=== PATIENT | male | born 1990 | race Caucasian/White ===

== ENCOUNTER 2022-07-05 00:13 | Emergency (ER) | payer BC ==
[2022-07-05] MEDS ORDERED: VERSED 5 MG/5 ML ONE (00:17)
[2022-07-05] MEDS ORDERED: Sodium Chloride 0.9% 1000 ML 1,000 ML IV STA ×2 (00:18→01:29)
[2022-07-05] MEDS ORDERED: ZOFRAN ODT 4 MG PO ONE (00:18)
--- NOTE | 2022-07-05 00:18 | ERPHSYRPT ---
- History of Present Illness Source: patient, EMS Exam Limitations: clinical condition, intoxication Timing/Duration: today Severity of Symptoms-Max: moderate Severity of Symptoms-Current: mild (Mild to moderate) Suicidal thoughts: ingestion Associated Symptoms: agitated, anxiety, ingestion <QUINN CLEMENTS - Last Filed: 07/05/22 06:37> <MOHSEN LEY - Last Filed: 07/05/22 12:44> - History of Present Illness Time Seen by Provider: 07/05/22 00:18 Physician History: This is a 31-year-old white male patient was brought into the emergency department by paramedics secondary to tensional ingestion of approximately 15 tablets of his Effexor medication (venlafaxine). Occurred prior to arrival. The timing that he ingested was approximately 4-4 30 this afternoon. He took it before his work this afternoon. A coworker had called because the patient was not acting normally at work. When asked, the patient states he did not consume these tablets secondary to her suicidal attempt. He was vague as to why he took so many of his medication. Patient has no complaints upon arrival to the emergency department. He was brought in by the paramedics (QUINN CLEMENTS) Allergies/Adverse Reactions: No Known Drug Allergies Allergy (Verified 07/05/22 00:18) - Nursing Vital Signs Nursing Vital Signs: Initial Vital Signs Temperature 98.1 F 07/05/22 00:31 Pulse Rate 155 H 07/05/22 00:31 Respiratory Rate 24 07/05/22 00:31 Blood Pressure 138/54 07/05/22 00:31 O2 Sat by Pulse Oximetry 97 07/05/22 00:31 Pain Scale Pain Intensity 0 - Course Nursing assessment & vital signs reviewed: Yes EKG Interpreted by Me: RATE ([id number]), Sinus Tach, prolonged QT interval, NORMAL QRS, NORMAL ST-T, Other (No acute ischemic changes on today's twelve-lead EKG.) <QUINN CLEMENTS - Last Filed: 07/05/22 06:37> Ordered Tests: Active Orders 24 hr Category Date Time Status Clean Catch Urine Specimen STAT Care 07/05/22 00:18 Active EKG-ER Only STAT Care 07/05/22 00:19 Active Suggs [Catheter-[place]] STAT Care 07/05/22 00:25 Active IV Insertion STAT Care 07/05/22 00:18 Active Telemetry q4h Care 07/05/22 02:12 Active ACETAMINOPHEN Stat Lab 07/05/22 00:53 Completed BMP Stat Lab 07/05/22 04:01 Completed BMP Stat Lab 07/05/22 08:40 Completed CBC W DIFF Stat Lab 07/05/22 00:53 Completed CK (IN-HOUSE) [CK-Creatinine Phosphokinase] Stat Lab 07/05/22 00:43 Completed CMP Stat Lab 07/05/22 00:53 Completed ETHYL ALCOHOL Stat Lab 07/05/22 00:53 Completed MAG [MAGNESIUM] Stat Lab 07/05/22 00:43 Completed POCT GLUCOSE Stat Lab 07/05/22 00:22 Completed POCT GLUCOSE Stat Lab 07/05/22 01:33 Completed POCT GLUCOSE Stat Lab 07/05/22 10:42 Received POCT GLUCOSE Stat Lab 07/05/22 10:42 Received POCT GLUCOSE Stat Lab 07/05/22 10:43 Completed SALICYLATE Stat Lab 07/05/22 00:53 Completed UA W/RFX UR CULTURE Stat Lab 07/05/22 00:53 Completed Urine Triage Profile Stat Lab 07/05/22 00:43 Completed Medication Summary Discontinued Medications Generic Name Dose Route Start Last Admin Trade Name Freq PRN Reason Stop Dose Admin Sodium Chloride 1,000 mls @ 999 mls/hr 07/05/22 00:18 07/05/22 01:41 Sodium Chloride 0.9% 1000 Ml IV 07/05/22 01:18 Infused .Q1H1M STA Infusion Sodium Chloride Confirm 07/05/22 00:37 Sodium Chloride 0.9% 1000 Ml Administered 07/05/22 00:38 Dose 1,000 mls @ ud .ROUTE .STK-MED ONE Sodium Chloride Confirm 07/05/22 01:00 Sodium Chloride 0.9% 250 Ml Administered 07/05/22 01:01 Dose 250 mls @ ud IV .STK-MED ONE Midazolam HCl 50 mg/ Sodium 250 mls @ 11.825 mls/hr 07/05/22 01:12 07/05/22 01:22 Chloride IV 08/04/22 01:11 0.004 mg/kg/hr .Q21H9M PRN 1.892 mls/hr SEDATION Administration Protocol 0.025 MG/KG/HR Sodium Chloride 1,000 mls @ 500 mls/hr 07/05/22 01:29 07/05/22 01:38 Sodium Chloride 0.9% 1000 Ml IV 07/05/22 03:28 Not Given .Q2H STA Dextrose/Sodium Chloride 1,000 mls @ 250 mls/hr 07/05/22 02:00 07/05/22 10:41 Dextrose 5%-Ns Iv Solution 1000 Ml IV 08/04/22 01:59 Not Given .Q4H KELSY Magnesium Sulfate/Dextrose 100 mls @ 100 mls/hr 07/05/22 02:15 07/05/22 02:53 Magnesium 1 Gm / 100 Ml D5w IV 07/05/22 04:14 100 mls/hr Q1H KELSY Administration Potassium Chloride 20 meq in 100 mls @ 50 mls/hr 07/05/22 02:12 07/05/22 02:20 Potassium Chloride 20 Meq In Water 100ml IV 07/05/22 04:11 50 mls/hr STAT ONE Administration Potassium Chloride Confirm 07/05/22 02:14 Potassium Chloride 20 Meq In Water 100ml Administered 07/05/22 02:15 Dose 100 mls @ ud IV .STK-MED ONE Sodium Chloride 500 mls @ 250 mls/hr 07/05/22 06:19 07/05/22 08:36 Sodium Chloride 0.9% 500 Ml IV 07/05/22 08:18 Infused .Q2H ONE Infusion Sodium Chloride Confirm 07/05/22 06:22 Sodium Chloride 0.9% 500 Ml Administered 07/05/22 06:23 Dose 500 mls @ ud IV .STK-MED ONE Midazolam HCl Confirm 07/05/22 00:17 Midazolam Hcl 5 Mg/5 Ml Vial Administered 07/05/22 00:18 Dose 5 mg .ROUTE .STK-MED ONE Ondansetron HCl 4 mg 07/05/22 00:18 07/05/22 00:40 Zofran 4 Mg/Udtablet Orally Disintegrating PO 07/05/22 00:19 Not Given STAT ONE Ondansetron HCl 4 mg 07/05/22 00:40 07/05/22 00:40 Ondansetron Hcl 4 Mg/2 Ml Vial IV 07/05/22 00:41 4 mg STAT ONE Administration Ondansetron HCl Confirm 07/05/22 00:37 Ondansetron Hcl 4 Mg/2 Ml Vial Administered 07/05/22 00:38 Dose 4 mg .ROUTE .STK-MED ONE Pantoprazole Sodium 40 mg 07/05/22 00:19 07/05/22 00:39 Pantoprazole 40 Mg Vial IV 07/05/22 00:20 40 mg STAT ONE Administration Pantoprazole Sodium Confirm 07/05/22 00:37 Pantoprazole 40 Mg Vial Administered 07/05/22 00:38 Dose 40 mg IV .STK-MED ONE Lab/Rad Data: Laboratory Result Diagrams 07/05/22 00:53 07/05/22 08:40 Laboratory Results 07/05/22 07/05/22 07/05/22 Range/Units 10:43 08:40 04:01 WBC (4.0-10.5) x10^3/uL RBC (4.1-5.6) x10^6/uL Hgb (12.5-18.0) g/dL Hct (42-50) % MCV (78-100) fL MCH (26-32) pg MCHC (32-36) g/dL RDW (11.5-14.0) % Plt Count (150-450) x10^3/uL MPV (7.5-11.0) fL Gran % (36.0-66.0) % Immature Gran % (Auto) (0.00-0.4) % Nucleat RBC Rel Count (0.00-0.1) % Eos # (Auto) (0-0.5) x10^3/uL Immature Gran # (Auto) (0.00-0.03) x10^3u/L Absolute Lymphs (auto) (1.0-4.6) x10^3/uL Absolute Monos (auto) (0.0-1.3) x10^3/uL Absolute Nucleated RBC (0.00-0.01) x10^3u/L Lymphocytes % (24.0-44.0) % Monocytes % (0.0-12.0) % Eosinophils % (0.00-5.0) % Basophils % (0.0-0.4) % Absolute Granulocytes (1.4-6.9) x10^3/uL Basophils # (0-0.4) x10^3/uL Sodium 141 139 (137-145) mmol/L Potassium 3.6 3.7 (3.5-5.1) mmol/L Chloride 107 105 (98-107) mmol/L Carbon Dioxide 25 27 (22-30) mmol/L Anion Gap 12.4 10.7 (5-15) MEQ/L BUN 9 13 (9-20) mg/dL Creatinine 0.68 0.77 (0.66-1.25) mg/dL Estimated GFR > 60.0 > 60.0 ML/MIN Glucose 76 136 H (74-106) mg/dL POC Glucometer 91 (74 to 106) mg/dL Calcium 7.2 L 7.3 L D (8.4-10.2) mg/dL Magnesium (1.6-2.3) mg/dL Total Bilirubin (0.2-1.3) mg/dL AST (17-59) U/L ALT (0-50) U/L Alkaline Phosphatase (38-126) U/L Creatine Kinase (55-170) U/L Serum Total Protein (6.3-8.2) g/dL Albumin (3.5-5.0) g/dL Urine Color (Yellow) Urine Appearance (Clear) Urine pH (4.6-8.0) Ur Specific [place] (1.005-1.030) Urine Protein (Negative) Urine Glucose (UA) (Negative) mg/dL Urine Ketones (Negative) Urine Blood (Negative) Urine Nitrite (Negative) Urine Bilirubin (Negative) Urine Urobilinogen (0.2) mg/dL Ur Leukocyte Esterase (Negative) U Hyaline Cast (Auto) (0-2) /LPF Urine Microscopic RBC (0-5) /HPF Urine Microscopic WBC (0-5) /HPF Ur Epithelial Cells (None Seen) /HPF Urine Bacteria (None Seen) /HPF Urine Culture Reflexed (NO) Salicylates (2-20) mg/dL Urine Opiates Level (NEGATIVE) Ur Methadone (NEGATIVE) Acetaminophen (10-30) ug/ml Urine Barbiturates (NEGATIVE) Ur Phencyclidine (PCP) (NEGATIVE) Urine Amphetamine (NEGATIVE) U Benzodiazepine Level (NEGATIVE) Urine Cocaine (NEGATIVE) Urine Marijuana (THC) (NEGATIVE) Ethyl Alcohol (0-10) mg/dL 04/28/23 04/28/23 04/28/23 Range/Units 01:33 00:53 00:53 WBC (4.0-10.5) x10^3/uL RBC (4.1-5.6) x10^6/uL Hgb (12.5-18.0) g/dL Hct (42-50) % MCV (78-100) fL MCH (26-32) pg MCHC (32-36) g/dL RDW (11.5-14.0) % Plt Count (150-450) x10^3/uL MPV (7.5-11.0) fL Gran % (36.0-66.0) % Immature Gran % (Auto) (0.00-0.4) % Nucleat RBC Rel Count (0.00-0.1) % Eos # (Auto) (0-0.5) x10^3/uL Immature Gran # (Auto) (0.00-0.03) x10^3u/L Absolute Lymphs (auto) (1.0-4.6) x10^3/uL Absolute Monos (auto) (0.0-1.3) x10^3/uL Absolute Nucleated RBC (0.00-0.01) x10^3u/L Lymphocytes % (24.0-44.0) % Monocytes % (0.0-12.0) % Eosinophils % (0.00-5.0) % Basophils % (0.0-0.4) % Absolute Granulocytes (1.4-6.9) x10^3/uL Basophils # (0-0.4) x10^3/uL Sodium 141 (137-145) mmol/L Potassium 3.9 (3.5-5.1) mmol/L Chloride 104 (98-107) mmol/L Carbon Dioxide 19 L (22-30) mmol/L Anion Gap 23.1 H (5-15) MEQ/L BUN 16 (9-20) mg/dL Creatinine 1.00 (0.66-1.25) mg/dL Estimated GFR > 60.0 ML/MIN Glucose 96 (74-106) mg/dL POC Glucometer 90 (74 to 106) mg/dL Calcium 8.6 (8.4-10.2) mg/dL Magnesium (1.6-2.3) mg/dL Total Bilirubin 0.40 (0.2-1.3) mg/dL AST 43 (17-59) U/L ALT 52 H (0-50) U/L Alkaline Phosphatase 72 (38-126) U/L Creatine Kinase (55-170) U/L Serum Total Protein 7.5 (6.3-8.2) g/dL Albumin 4.7 (3.5-5.0) g/dL Urine Color Yellow (Yellow) Urine Appearance Clear (Clear) Urine pH 6.0 (4.6-8.0) Ur Specific [place] 1.020 (1.005-1.030) Urine Protein 30 (Negative) Urine Glucose (UA) Negative (Negative) mg/dL Urine Ketones Negative (Negative) Urine Blood Moderate A (Negative) Urine Nitrite Negative (Negative) Urine Bilirubin Negative (Negative) Urine Urobilinogen 1.0 A (0.2) mg/dL Ur Leukocyte Esterase Negative (Negative) U Hyaline Cast (Auto) 3-5 A (0-2) /LPF Urine Microscopic RBC 0-2 (0-5) /HPF Urine Microscopic WBC 3-5 (0-5) /HPF Ur Epithelial Cells None Seen (None Seen) /HPF Urine Bacteria None Seen (None Seen) /HPF Urine Culture Reflexed NO (NO) Salicylates < 1.0 L (2-20) mg/dL Urine Opiates Level (NEGATIVE) Ur Methadone (NEGATIVE) Acetaminophen < 10 L (10-30) ug/ml Urine Barbiturates (NEGATIVE) Ur Phencyclidine (PCP) (NEGATIVE) Urine Amphetamine (NEGATIVE) U Benzodiazepine Level (NEGATIVE) Urine Cocaine (NEGATIVE) Urine Marijuana (THC) (NEGATIVE) Ethyl Alcohol < 10 (0-10) mg/dL 07/05/22 07/05/22 07/05/22 Range/Units 00:53 00:43 00:43 WBC 15.3 H (4.0-10.5) x10^3/uL RBC 4.80 (4.1-5.6) x10^6/uL Hgb 15.2 (12.5-18.0) g/dL Hct 45.6 (42-50) % MCV 95.0 (78-100) fL MCH 31.7 (26-32) pg MCHC 33.3 (32-36) g/dL RDW 11.7 (11.5-14.0) % Plt Count 353 (150-450) x10^3/uL MPV 9.6 (7.5-11.0) fL Gran % 87.0 H (36.0-66.0) % Immature Gran % (Auto) 2.2 H (0.00-0.4) % Nucleat RBC Rel Count 0.0 (0.00-0.1) % Eos # (Auto) 0.05 (0-0.5) x10^3/uL Immature Gran # (Auto) 0.34 H (0.00-0.03) x10^3u/L Absolute Lymphs (auto) 0.90 L (1.0-4.6) x10^3/uL Absolute Monos (auto) 0.65 (0.0-1.3) x10^3/uL Absolute Nucleated RBC 0.00 (0.00-0.01) x10^3u/L Lymphocytes % 5.9 L (24.0-44.0) % Monocytes % 4.3 (0.0-12.0) % Eosinophils % 0.3 (0.00-5.0) % Basophils % 0.3 (0.0-0.4) % Absolute Granulocytes 13.27 H (1.4-6.9) x10^3/uL Basophils # 0.05 (0-0.4) x10^3/uL Sodium (137-145) mmol/L Potassium (3.5-5.1) mmol/L Chloride (98-107) mmol/L Carbon Dioxide (22-30) mmol/L Anion Gap (5-15) MEQ/L BUN (9-20) mg/dL Creatinine (0.66-1.25) mg/dL Estimated GFR ML/MIN Glucose (74-106) mg/dL POC Glucometer (74 to 106) mg/dL Calcium (8.4-10.2) mg/dL Magnesium 2.5 H (1.6-2.3) mg/dL Total Bilirubin (0.2-1.3) mg/dL AST (17-59) U/L ALT (0-50) U/L Alkaline Phosphatase (38-126) U/L Creatine Kinase 345 H (55-170) U/L Serum Total Protein (6.3-8.2) g/dL Albumin (3.5-5.0) g/dL Urine Color (Yellow) Urine Appearance (Clear) Urine pH (4.6-8.0) Ur Specific [place] (1.005-1.030) Urine Protein (Negative) Urine Glucose (UA) (Negative) mg/dL Urine Ketones (Negative) Urine Blood (Negative) Urine Nitrite (Negative) Urine Bilirubin (Negative) Urine Urobilinogen (0.2) mg/dL Ur Leukocyte Esterase (Negative) U Hyaline Cast (Auto) (0-2) /LPF Urine Microscopic RBC (0-5) /HPF Urine Microscopic WBC (0-5) /HPF Ur Epithelial Cells (None Seen) /HPF Urine Bacteria (None Seen) /HPF Urine Culture Reflexed (NO) Salicylates (2-20) mg/dL Urine Opiates Level (NEGATIVE) Ur Methadone (NEGATIVE) Acetaminophen (10-30) ug/ml Urine Barbiturates (NEGATIVE) Ur Phencyclidine (PCP) (NEGATIVE) Urine Amphetamine (NEGATIVE) U Benzodiazepine Level (NEGATIVE) Urine Cocaine (NEGATIVE) Urine Marijuana (THC) (NEGATIVE) Ethyl Alcohol (0-10) mg/dL 07/05/22 07/05/22 Range/Units 00:43 00:22 WBC (4.0-10.5) x10^3/uL RBC (4.1-5.6) x10^6/uL Hgb (12.5-18.0) g/dL Hct (42-50) % MCV (78-100) fL MCH (26-32) pg MCHC (32-36) g/dL RDW (11.5-14.0) % Plt Count (150-450) x10^3/uL MPV (7.5-11.0) fL Gran % (36.0-66.0) % Immature Gran % (Auto) (0.00-0.4) % Nucleat RBC Rel Count (0.00-0.1) % Eos # (Auto) (0-0.5) x10^3/uL Immature Gran # (Auto) (0.00-0.03) x10^3u/L Absolute Lymphs (auto) (1.0-4.6) x10^3/uL Absolute Monos (auto) (0.0-1.3) x10^3/uL Absolute Nucleated RBC (0.00-0.01) x10^3u/L Lymphocytes % (24.0-44.0) % Monocytes % (0.0-12.0) % Eosinophils % (0.00-5.0) % Basophils % (0.0-0.4) % Absolute Granulocytes (1.4-6.9) x10^3/uL Basophils # (0-0.4) x10^3/uL Sodium (137-145) mmol/L Potassium (3.5-5.1) mmol/L Chloride (98-107) mmol/L Carbon Dioxide (22-30) mmol/L Anion Gap (5-15) MEQ/L BUN (9-20) mg/dL Creatinine (0.66-1.25) mg/dL Estimated GFR ML/MIN Glucose (74-106) mg/dL POC Glucometer 107 H (74 to 106) mg/dL Calcium (8.4-10.2) mg/dL Magnesium (1.6-2.3) mg/dL Total Bilirubin (0.2-1.3) mg/dL AST (17-59) U/L ALT (0-50) U/L Alkaline Phosphatase (38-126) U/L Creatine Kinase (55-170) U/L Serum Total Protein (6.3-8.2) g/dL Albumin (3.5-5.0) g/dL Urine Color (Yellow) Urine Appearance (Clear) Urine pH (4.6-8.0) Ur Specific [place] (1.005-1.030) Urine Protein (Negative) Urine Glucose (UA) (Negative) mg/dL Urine Ketones (Negative) Urine Blood (Negative) Urine Nitrite (Negative) Urine Bilirubin (Negative) Urine Urobilinogen (0.2) mg/dL Ur Leukocyte Esterase (Negative) U Hyaline Cast (Auto) (0-2) /LPF Urine Microscopic RBC (0-5) /HPF Urine Microscopic WBC (0-5) /HPF Ur Epithelial Cells (None Seen) /HPF Urine Bacteria (None Seen) /HPF Urine Culture Reflexed (NO) Salicylates (2-20) mg/dL Urine Opiates Level NEGATIVE (NEGATIVE) Ur Methadone NEGATIVE (NEGATIVE) Acetaminophen (10-30) ug/ml Urine Barbiturates NEGATIVE (NEGATIVE) Ur Phencyclidine (PCP) NEGATIVE (NEGATIVE) Urine Amphetamine NEGATIVE (NEGATIVE) U Benzodiazepine Level NEGATIVE (NEGATIVE) Urine Cocaine NEGATIVE (NEGATIVE) Urine Marijuana (THC) NEGATIVE (NEGATIVE) Ethyl Alcohol (0-10) mg/dL - Progress Progress: improved, re-examined Counseled pt/family regarding: lab results, diagnosis <QUINN CLEMENTS - Last Filed: 07/05/22 06:37> <MOHSEN LEY - Last Filed: 07/05/22 12:44> - Progress Progress Note: 07/05/22 01:14 This patient's medical issue is 1 of high complexity. The level of complexity and the work-up performed is based on the past medical history, medication list, medication drug allergy list, history of present illness and physical findings. Work-up includes placement of intravenous fluids. IV line was already placed by the paramedics. We gave the patient Zofran intravenously as well as Protonix intravenously. We also provided him with a Versed drip. We did a CBC, CMP, urinalysis, urine drug triage, twelve-lead EKG. The patient is monitored in the emergency department. We placed him on 2 L oxygen via nasal cannula. We contacted poison control ([place]) and obtained instructions and direction on caring and monitoring this patient. They faxed over instructions for monitoring and medical intervention if and as needed. Patient is giving different versions of his answer to the question whether or not this was a suicidal attempt. He states the oral ingestion was intentional but was not suicidal attempt. However, he did tell the nurse that it was a suicide attempt. Therefore we will monitor him here in the emergency department and continue intravenous fluids and the Versed drip and will periodically repeat twelve-lead EKG and monitor his temperature, heart rate, blood pressure and oxygen saturations. We will obtain a psychiatric consultation later in the morning. 07/05/22 06:20 Repeat/second twelve-lead EKG was interpreted by me as performed 07/05/2022 at 256 the morning the heart rate is 128 bpm sinus tachycardia normal axis normal QRS normal intervals without evidence of acute ischemic changes. 07/05/22 06:37 Repeat/third twelve-lead EKG was interpreted by me and performed on 07/05/2022 at approximately 625 this morning. The heart rate is 111 bpm. The rhythm is sinus tachycardia with normal axis, normal QRS, normal intervals without evidence of acute ischemic changes. Repeat BMP will be ordered for 0800 this a.m. Patient will need a psychiatric/mental health evaluation to determine his final disposition. I am transferring care of this patient to Dr. Ley at shift change. He will follow- up on the repeat BMP results, evaluate his vital signs and alertness/awareness and order the psychiatric evaluation. He will make final disposition. (QUINN CLEMENTS) 07/05/22 12:19 Patient is checked out to me at shift change from Dr. Clements with pending repeating labs and psychiatric evaluation. Patient was on low-dose of Versed which was stopped and Poison control is called again who recommended patient would be cleared if has stable vitals around 9:30 AM today. Patient continue to improve, holding normal conversation, does report having depressive thoughts, denies any definite suicidal thoughts/intention to take these medication but could not explain why did he take those meds. Behavioral health evaluation is obtained and is appropriate for transfer to inpatient psychiatric facility for further evaluation. Patient is being [facility] to [facility]. (MOHSEN LEY) Medical Desision Making - Independent Historian Additional History obtained from: Staffing Director/EMT - Discussion of managment Reviewed:: Test results - Diagnostic Testing Diagnostic test were ordered, analyzed, and reviewed by me: Yes - Risk of complications The pt has a high risk of morbidity or mortality based on: Decision regarding hospitilization or escalation of hosp level of care <QUINN CLEMENTS - Last Filed: 07/05/22 06:37> - Independent Historian Additional History obtained from: Family - Discussion of managment Care discussed with:: on-call "doc" (Dr. JASON Day) Agreed on:: Treatment plan Will see patient: in hospital <MOHSEN LEY - Last Filed: 07/05/22 12:44> - Departure Departure Disposition: Transfer Critical Care Time: Yes Critical Care Time(excluding separately billable procedures): Critical 30-74 mins (40) <QUINN CLEMENTS - Last Filed: 07/05/22 06:37> <MOHSEN LEY - Last Filed: 07/05/22 12:44> - Departure Clinical Impression: SSRI poisoning of undetermined intent, Major depression Condition: Fair Referrals: DOCTOR,NO FAMILY [Primary Care Provider] - Follow up/PCP as directed
[2022-07-05] MEDS ORDERED: PROTONIX 40 MG IV IV ONE ×2 (00:19→00:37)
[2022-07-05] MEDS ORDERED: Sodium Chloride 0.9% 1000 ML 1,000 ML ONE (00:37)
[2022-07-05] MEDS ORDERED: Zofran 4 MG/2 ML VIAL ONE (00:37)
[2022-07-05] MEDS ORDERED: Zofran 4 MG/2 ML VIAL IV ONE (00:40)
[2022-07-05 00:57] LABS: Absolute Neutrophil Ct (ANC) 13.27 x10^3/uL (1.4-6.9); BASOPHIL % 0.3 % (0.0-0.4); Basophil (Absolute #) 0.05 x10^3/uL (0-0.4); Eosinophil % 0.3 % (0.00-5.0); Eosinophil (Absolute #) 0.05 x10^3/uL (0-0.5); Hematocrit 45.6 % (42-50); Hemoglobin 15.2 g/dL (12.5-18.0); IMMATURE GRAN # 0.34 x10^3u/L (0.00-0.03); IMMATURE GRAN % 2.2 % (0.00-0.4); Lymphocytes % 5.9 % (24.0-44.0); Mean Corpuscular Hemoglobin 31.7 pg (26-32); Mean Corpuscular Hgb Concent. 33.3 g/dL (32-36); Mean Platelet Volume 9.6 fL (7.5-11.0); Monocyte (Absolute #) 0.65 x10^3/uL (0.0-1.3); Monocytes % 4.3 % (0.0-12.0); Platelet Count 353 x10^3/uL (150-450); Red Cell Distribution Width 11.7 % (11.5-14.0); White Blood Count 15.3 x10^3/uL (4.0-10.5)
[2022-07-05] MEDS ORDERED: Sodium Chloride 0.9% 250 ML 250 ML IV ONE (01:00)
[2022-07-05 01:10] LABS: Appearance Clear (Clear); Bacteria None Seen /HPF (None Seen); Bilirubin Negative (Negative); Blood Moderate (Negative); Epithelial Cells None Seen /HPF (None Seen); Glucose, Urine Negative (Negative); Ketones Negative (Negative); Leukocyte Esterase Negative (Negative); Nitrite Negative (Negative); Protein,Urine Dip 30 (Negative); RBC 0-2 /HPF (0-5)
[2022-07-05 01:11] LABS: ACETAMINOPHEN < 10 ug/ml (10-30); ADD URINE CULTURE? NO (NO); ALBUMIN 4.7 g/dL (3.5-5.0); ALKALINE PHOSPHATASE 72 U/L (38-126); ANION GAP 23.1 MEQ/L (5-15); BLOOD UREA NITROGEN 16 mg/dL (9-20); CHLORIDE 104 mmol/L (98-107); Calcium 8.6 mg/dL (8.4-10.2); Carbon Dioxide 19 mmol/L (22-30); EST GLOMERULAR FILTRATION RATE > 60.0 ML/MIN; ETHYL ALCOHOL < 10 mg/dL (0-10); Glucose 96 mg/dL (74-106); Potassium 3.9 mmol/L (3.5-5.1); SALICYLATE < 1.0 mg/dL (2-20); SGOT/AST 43 U/L (17-59); SGPT/ALT 52 U/L (0-50); SODIUM 141 mmol/L (137-145); Total Protein 7.5 g/dL (6.3-8.2)
[2022-07-05] MEDS ORDERED: Versed 50 MG/ 10 Ml MDV*** 50 MG in Sodium Chloride 0.9% 250 ML 240 ML IV PRN (01:12)
[2022-07-05 01:21] LABS: Amphetamine,Urine NEGATIVE (NEGATIVE); Barbiturate,Urine NEGATIVE (NEGATIVE); Benzodiazepine,Urine NEGATIVE (NEGATIVE); Cocaine,Urine NEGATIVE (NEGATIVE); Methadone,Urine NEGATIVE (NEGATIVE); Opiate,Urine NEGATIVE (NEGATIVE); PCP,Urine NEGATIVE (NEGATIVE); THC,Urine NEGATIVE (NEGATIVE)
[2022-07-05] MEDS: Dextrose 5%-NS IV Solution 1000 ML 1,000 ML IV SCH ×3 (01:38→10:41)
[2022-07-05] MEDS ORDERED: POTASSIUM CHLORIDE 20 mEq IN WATER 100ML 20 MEQ/100 ML BAG IV ONE (02:12)
[2022-07-05] MEDS ORDERED: POTASSIUM CHLORIDE 20 mEq IN WATER 100ML 100 ML IV ONE (02:14)
[2022-07-05] MEDS: Magnesium 1 Gm / 100 Ml D5W*** 100 ML IV SCH ×2 (02:20→02:53)
[2022-07-05 04:17] LABS: ANION GAP 10.7 MEQ/L (5-15); BLOOD UREA NITROGEN 13 mg/dL (9-20); CHLORIDE 105 mmol/L (98-107); Calcium 7.3 mg/dL (8.4-10.2); Carbon Dioxide 27 mmol/L (22-30); Creatinine 1 0.77 mg/dL (0.66-1.25); EST GLOMERULAR FILTRATION RATE > 60.0 ML/MIN; Glucose 136 mg/dL (74-106); Potassium 3.7 mmol/L (3.5-5.1); SODIUM 139 mmol/L (137-145)
[2022-07-05] MEDS ORDERED: Sodium Chloride 0.9% 500 ML 500 ML IV ONE ×2 (06:19→06:22)
[2022-07-05 08:57] LABS: ANION GAP 12.4 MEQ/L (5-15); BLOOD UREA NITROGEN 9 mg/dL (9-20); CHLORIDE 107 mmol/L (98-107); Calcium 7.2 mg/dL (8.4-10.2); Carbon Dioxide 25 mmol/L (22-30); Creatinine 1 0.68 mg/dL (0.66-1.25); EST GLOMERULAR FILTRATION RATE > 60.0 ML/MIN; Glucose 76 mg/dL (74-106); Potassium 3.6 mmol/L (3.5-5.1); SODIUM 141 mmol/L (137-145)
[2022-07-05 12:24] VITALS: BP 129/77; PULSE 102; O2SAT 95
== END 2022-07-05 12:53 | disposition short-term general hospital (02) ==
LOC: ED 00:13
DX: T43.214A Poisoning by selective serotonin and norepinephrine reuptake inhibitors, undetermined, initial encounter (principal); F32.9 Major depressive disorder, single episode, unspecified
CPT/HCPCS: 36000; 36415; 51702; 80048; 80053; 80143; 80179; 80307; 81001; 82077; 82550; 82947; 83735; 85025; 93005; 96360; 96361; 96365; 96366; 96367; 96374; 96375; 99285; 99291; J2250; J2405; J3475; J3480